=== PATIENT | male | born 1955 | race Caucasian/White ===

== ENCOUNTER 2017-12-28 14:31 | Inpatient (IN) | payer MEDICARE, MEDICAID ==
[~2017-12-28] VITALS: Ht 170.2 cm; Wt 58.5 kg
[~2017-12-28 14:31] MED LIST: BUPR1PAT9 TOP; CARV25TA2 PO; DICL75TA5 PO; DULO60CA64 PO; FURO40TA4 PO; GABA100C PO; GUAI600T45 PO; LACT1CAP26 PO; LOSA50TA21 PO; MAGN400T6 PO; OMEP20CA10 PO; POTA20TA10 PO; PRAZ5CAP PO; PRIM250T32 PO; SYN0.088T PO
[2017-12-28] MEDS ORDERED: albuterol 2.5 MG/3 ML nebule NEB ONE (14:50)
[2017-12-28] MEDS ORDERED: normal saline 1000ML IV soln IV ONE (14:50)
[2017-12-28 15:25] LABS: ABG BASE EXCESS -4.5 mmol/L (-2.0-3.0); ABG HCO3 22.2 mmol/L (22.0-26.0); ABG OXYGEN SATURATION 89.1 % (95-98); ABG PCO2 (T) 48.5 mmHg (35.0-48.0); ABG PH (T) 7.279 (7.350-7.450); ABG PO2 (T) 67.2 mmHg (83-108); FCOHb 4.7 % (0.5-1.5); FLOW 4 L/min; FMetHb 0.3 % (0.3-1.12); FO2Hb 84.6 % (94-100); TOTAL HEMOGLOBIN 10.1 G/dl (14.0-18.0)
[2017-12-28 15:37] LABS: BASOPHILS % (AUTO) 0.2 % (0-1); EOSINOPHILS % (AUTO) 0.1 % (0-6); HEMATOCRIT 30.9 % (42.0-52.0); HEMOGLOBIN 10.3 g/dl (14.0-17.9); LYMPHOCYTES # (AUTO) 0.5 X10'3 (1.1-4.8); LYMPHOCYTES % (AUTO) 6.9 % (21-51); MEAN CORPUSCULAR HEMOGLOBIN 31.5 PG (27.0-31.0); MEAN CORPUSCULAR HGB CONC 33.4 % (33.0-36.5); MEAN CORPUSCULAR VOLUME 94.3 FL (78-98); MEAN PLATELET VOLUME 9.2 FL (7.4-10.4); MONOCYTES # (AUTO) 0.2 X10'3 (0-0.9); NEUTROPHILS # (AUTO) 7.2 X10'3 (1.8-7.7); NEUTROPHILS % (AUTO) 90.8 % (42-75); PLATELET COUNT 129 X10'3 (140-440); RED BLOOD COUNT 3.28 X10'6 (4.70-6.10); RED CELL DISTRIBUTION WIDTH 14.3 % (11.5-14.5); WHITE BLOOD COUNT 7.9 X10'3 (4.5-11.0)
[2017-12-28] MEDS ORDERED: levoFLOXACIN-Levaquin 750MG/D5 150 ML IV ONE (15:40)
[2017-12-28] MEDS ORDERED: CefTRIAXone/D5W-Rocephin 1gm 50 ML IV ONE (15:40)
[2017-12-28 15:48] LABS: ALANINE AMINOTRANSFERASE 38 U/L (12-78); ALBUMIN 2.1 G/DL (3.4-5.0); ALBUMIN/GLOBULIN RATIO 0.6 (1.1-1.5); ALKALINE PHOSPHATASE 48 IU/L (46-116); ANION GAP 9 (8-16); ASPARTATE AMINO TRANSFERASE 52 U/L (10-37); BILIRUBIN,TOTAL 0.4 MG/DL (0.1-1.0); BLOOD UREA NITROGEN 47 MG/DL (7-18); BUN/CREATININE RATIO 15.7 (5.4-32.0); CALCIUM 7.6 MG/DL (8.5-10.1); CHLORIDE 88 MMOL/L (99-107); CREATININE 2.99 MG/DL (0.60-1.10); GLUCOSE 87 MG/DL (70-104); POTASSIUM 3.6 MMOL/L (3.5-5.1); SODIUM 123 MMOL/L (135-145); TOTAL CARBON DIOXIDE 26.1 MMOL/L (24-32); TOTAL PROTEIN 5.9 G/DL (6.4-8.2); eGFR 21 ML/MIN
[2017-12-28 15:55] LABS: INR 1.3 INR; PARTIAL THROMBOPLASTIN TIME 38 SECONDS (22-32); PROTHROMBIN TIME 12.8 SECONDS (9.0-12.0)
[2017-12-28 15:58] LABS: ANISOCYTOSIS 1+; PLATELET ESTIMATE DECREASED; TOTAL CELLS COUNTED 100
[2017-12-28] MEDS ORDERED: vancomycin/NS 1 GM ADD-VANTAGE 250 ML IV ONE (16:10)
[2017-12-28] MEDS ORDERED: CHLO25TA10 PO (16:33)
[2017-12-28] MEDS ORDERED: FERR-29 PO (16:33)
[2017-12-28] MEDS ORDERED: ASPI-1130 PO (16:33)
[2017-12-28] MEDS ORDERED: AMIT100T58 PO (16:33)
[2017-12-28] MEDS ORDERED: magnesium 4gm in 100ml NS 100 ML IV PRN (17:35)
[2017-12-28] MEDS ORDERED: sodium phosphate inj. 15 MMOL in dextrose 5%-water 150 ML IV PRN (17:35)
[2017-12-28] MEDS ORDERED: sodium phosphate inj. 30 MMOL in dextrose 5%-water 250 ML IV PRN (17:35)
[2017-12-28] MEDS ORDERED: Neutra Phos packet PO PRN (17:35)
[2017-12-28] MEDS ORDERED: magnesium 1gm/100ml D5W IVPB 100 ML IV PRN (17:35)
[2017-12-28] MEDS ORDERED: magnesium Cl slow-release 64mg tablet PO PRN (17:35)
[2017-12-28] MEDS ORDERED: magnesium hydroxide 30ml (MOM) UD suspension PO PRN (17:35)
[2017-12-28] MEDS ORDERED: LORazepam 2 mg/ml vial IV PRN (17:35)
[2017-12-28] MEDS ORDERED: acetaminophen 325mg tablet PO PRN (17:35)
[2017-12-28] MEDS ORDERED: haloperidol lactate 5mg/ml inj IM PRN (17:35)
[2017-12-28] MEDS ORDERED: ondansetron/PF 4mg/2ml inj IV PRN (17:35)
[2017-12-28] MEDS ORDERED: potassium Cl 40MEQ/NS 500ml 500 ML IV PRN ×2 (17:35)
[2017-12-28] MEDS ORDERED: haloperidol 5mg tablet PO PRN (17:35)
[2017-12-28] MEDS ORDERED: ipratropium/albuterol 3ml nebule NEB PRN ×2 (17:35→18:40)
[2017-12-28] MEDS ORDERED: K, MAG and/or Phos replacement - Verify level? MC PRN (17:35)
[2017-12-28] MEDS ORDERED: potassium Cl 20 mEq SR tablet PO PRN (17:35)
[2017-12-28] MEDS ORDERED: dextrose 50%-water 50ml dispensing syringe IV PRN (17:35)
[2017-12-28] MEDS ORDERED: thiamine 100mg/ml 2ml inj. IV ONE (17:35)
[2017-12-28 17:50] LABS: ABG BASE EXCESS -2.2 mmol/L (-2.0-3.0); ABG OXYGEN SATURATION 96.6 % (95-98); ABG PCO2 (T) 46.5 mmHg (35.0-48.0); ABG PH (T) 7.329 (7.350-7.450); ABG PO2 (T) 96.2 mmHg (83-108); FO2Hb 94.7 % (94-100); MINUTE VOLUME 7 L/min; PATIENT TEMPERATURE 36.6; RESPIRATORY RATE 16 b/min; RESPIRATORY RATE (OBSERVED) 19 b/min; TIDAL VOLUME 426 mL; TOTAL HEMOGLOBIN 10.8 G/dl (14.0-18.0)
[2017-12-28 18:15] LABS: AMYLASE 15 U/L (25-115); LIPASE < 50 U/L (73-393)
[2017-12-28 18:33] LABS: HEMOGLOBIN A1C 5.1 % (4.5-6.2)
[2017-12-28] MEDS ORDERED: vancomycin/NS 1 GM ADD-VANTAGE 250 ML IV SCH (20:00)
[2017-12-28] MEDS: duloxetine 30mg CAPSULE.DR PO SCH (20:21)
[2017-12-28] MEDS: gabapentin 300mg capsule PO SCH (20:21)
[2017-12-28] MEDS: carVEDilol 3.125mg tablet PO SCH (20:21)
[2017-12-28] MEDS: methylPREDNISolone sod succ 125mg/2ml vial IV SCH (20:24)
[2017-12-28] MEDS: pantoprazole 40 MG vial IV SCH (20:27)
[2017-12-28] MEDS: amitryptiline 50mg tablet PO SCH (21:00)
[2017-12-28] MEDS: prazosin 5mg capsule PO SCH (21:00)
[2017-12-29] MEDS: methylPREDNISolone sod succ 125mg/2ml vial IV SCH ×4 (01:41→19:52)
[2017-12-29 04:01] LABS: ABG BASE EXCESS -1.2 mmol/L (-2.0-3.0); ABG HCO3 24.7 mmol/L (22.0-26.0); ABG OXYGEN SATURATION 92.2 % (95-98); ABG PCO2 (T) 45.5 mmHg (35.0-48.0); ABG PO2 (T) 64.4 mmHg (83-108); ALLEN'S TEST Positive; FCOHb 0.4 % (0.5-1.5); FLOW 3 L/min; FMetHb 0.3 % (0.3-1.12); FO2Hb 91.6 % (94-100); PATIENT TEMPERATURE 36.7
[2017-12-29] MEDS ORDERED: levoFLOXACIN-Levaquin 500mg/D5 100 ML IV SCH (08:00)
[2017-12-29 08:05] LABS: ALANINE AMINOTRANSFERASE 33 U/L (12-78); ALBUMIN 2.1 G/DL (3.4-5.0); ALBUMIN/GLOBULIN RATIO 0.5 (1.1-1.5); ALKALINE PHOSPHATASE 47 IU/L (46-116); ANION GAP 11 (8-16); ASPARTATE AMINO TRANSFERASE 33 U/L (10-37); BILIRUBIN,TOTAL 0.2 MG/DL (0.1-1.0); BLOOD UREA NITROGEN 43 MG/DL (7-18); BUN/CREATININE RATIO 23.5 (5.4-32.0); CALCIUM 7.9 MG/DL (8.5-10.1); CHLORIDE 93 MMOL/L (99-107); CREATININE 1.83 MG/DL (0.60-1.10); GLUCOSE 206 MG/DL (70-104); PHOSPHORUS 3.5 MG/DL (2.3-4.5); POTASSIUM 3.2 MMOL/L (3.5-5.1); SODIUM 129 MMOL/L (135-145); TOTAL CARBON DIOXIDE 24.6 MMOL/L (24-32); eGFR 38 ML/MIN
[2017-12-29 08:25] LABS: BASOPHILS % (AUTO) 0.3 % (0-1); EOSINOPHILS % (AUTO) 0.4 % (0-6); HEMATOCRIT 30.6 % (42.0-52.0); HEMOGLOBIN 10.3 g/dl (14.0-17.9); LYMPHOCYTES # (AUTO) 0.3 X10'3 (1.1-4.8); MEAN CORPUSCULAR HEMOGLOBIN 31.7 PG (27.0-31.0); MEAN CORPUSCULAR HGB CONC 33.6 % (33.0-36.5); MEAN CORPUSCULAR VOLUME 94.4 FL (78-98); MEAN PLATELET VOLUME 9.5 FL (7.4-10.4); MONOCYTES # (AUTO) 0.1 X10'3 (0-0.9); NEUTROPHILS # (AUTO) 7.9 X10'3 (1.8-7.7); NEUTROPHILS % (AUTO) 94.3 % (42-75); PLATELET COUNT 144 X10'3 (140-440); RED BLOOD COUNT 3.24 X10'6 (4.70-6.10); RED CELL DISTRIBUTION WIDTH 14.4 % (11.5-14.5); WHITE BLOOD COUNT 8.4 X10'3 (4.5-11.0)
[2017-12-29] MEDS: CefTRIAXone/D5W-Rocephin 1gm 50 ML IV SCH (08:39)
[2017-12-29 08:41] LABS: PLATELET ESTIMATE NORMAL; TOTAL CELLS COUNTED 100
[2017-12-29] MEDS: pantoprazole 40 MG vial IV SCH (08:41)
[2017-12-29] MEDS: potassium Cl 20 mEq SR tablet PO PRN (08:42)
[2017-12-29] MEDS: aspirin 81mg tablet.DR PO SCH (08:42)
[2017-12-29] MEDS: gabapentin 300mg capsule PO SCH ×2 (08:42→19:52)
[2017-12-29] MEDS: carVEDilol 3.125mg tablet PO SCH ×2 (08:42→19:52)
[2017-12-29] MEDS: ferrous sulfate 325mg tablet PO SCH (08:42)
[2017-12-29] MEDS: multivitamins, therapeutics tablet PO SCH (08:42)
[2017-12-29] MEDS: folic acid 1mg tablet PO SCH (08:42)
[2017-12-29] MEDS: thiamine 100mg tablet PO SCH (08:42)
[2017-12-29] MEDS: duloxetine 30mg CAPSULE.DR PO SCH ×2 (08:42→19:52)
[2017-12-29] MEDS: primidone 250mg tablet PO SCH (08:43)
[2017-12-29 14:00] VITALS: BP 115/72
[2017-12-29 14:10] VITALS: BP 131/65
[2017-12-29] MEDS: morphine 2 MG/ML inj. syringe IV PRN (15:05)
[2017-12-29] MEDS: vancomycin/NS 1 GM ADD-VANTAGE 250 ML IV SCH (17:13)
[2017-12-29 18:00] VITALS: BP 123/74
[2017-12-29] MEDS: amitryptiline 50mg tablet PO SCH (19:52)
[2017-12-29] MEDS: pantoprazole 40mg Tablet.DR PO SCH (19:52)
[2017-12-29] MEDS: lactobacillus rhamnosus 10,000 MMU CELLS/CAPSULE PO SCH (19:52)
[2017-12-29] MEDS: prazosin 5mg capsule PO SCH (21:00)
[2017-12-29 22:00] VITALS: BP 127/80
[2017-12-30] MEDS: methylPREDNISolone sod succ 125mg/2ml vial IV SCH ×4 (01:45→20:51)
[2017-12-30 02:00] VITALS: BP 162/98
[2017-12-30 05:06] LABS: BASOPHILS % (AUTO) 0 % (0-1); EOSINOPHILS % (AUTO) 0 % (0-6); HEMATOCRIT 30.6 % (42.0-52.0); HEMOGLOBIN 10.1 g/dl (14.0-17.9); LYMPHOCYTES # (AUTO) 0.3 X10'3 (1.1-4.8); LYMPHOCYTES % (AUTO) 3.8 % (21-51); MEAN CORPUSCULAR HEMOGLOBIN 31.1 PG (27.0-31.0); MEAN CORPUSCULAR HGB CONC 32.8 % (33.0-36.5); MEAN CORPUSCULAR VOLUME 94.8 FL (78-98); MEAN PLATELET VOLUME 9.2 FL (7.4-10.4); MONOCYTES # (AUTO) 0.2 X10'3 (0-0.9); MONOCYTES % (AUTO) 1.9 % (2-12); NEUTROPHILS # (AUTO) 7.7 X10'3 (1.8-7.7); NEUTROPHILS % (AUTO) 94.3 % (42-75); PLATELET COUNT 155 X10'3 (140-440); RED BLOOD COUNT 3.23 X10'6 (4.70-6.10); RED CELL DISTRIBUTION WIDTH 14.8 % (11.5-14.5); WHITE BLOOD COUNT 8.2 X10'3 (4.5-11.0)
[2017-12-30 05:30] LABS: ALANINE AMINOTRANSFERASE 28 U/L (12-78); ALBUMIN/GLOBULIN RATIO 0.5 (1.1-1.5); ALKALINE PHOSPHATASE 53 IU/L (46-116); ANION GAP 7 (8-16); ASPARTATE AMINO TRANSFERASE 20 U/L (10-37); BILIRUBIN,TOTAL 0.2 MG/DL (0.1-1.0); BLOOD UREA NITROGEN 39 MG/DL (7-18); BUN/CREATININE RATIO 28.1 (5.4-32.0); CALCIUM 8.3 MG/DL (8.5-10.1); CHLORIDE 94 MMOL/L (99-107); CREATININE 1.39 MG/DL (0.60-1.10); GLUCOSE 134 MG/DL (70-104); MAGNESIUM 2.2 MG/DL (1.5-2.4); PHOSPHORUS 2.4 MG/DL (2.3-4.5); POTASSIUM 3.2 MMOL/L (3.5-5.1); SODIUM 128 MMOL/L (135-145); TOTAL CARBON DIOXIDE 27.2 MMOL/L (24-32); TOTAL PROTEIN 6.2 G/DL (6.4-8.2); eGFR 52 ML/MIN
[2017-12-30 06:00] VITALS: BP 147/93
[2017-12-30 06:33] LABS: TOTAL CELLS COUNTED 100
[2017-12-30 06:34] LABS: PLATELET ESTIMATE NORMAL
[2017-12-30] MEDS: CefTRIAXone/D5W-Rocephin 1gm 50 ML IV SCH (07:25)
[2017-12-30] MEDS: potassium Cl 20 mEq SR tablet PO PRN ×3 (07:34→19:39)
[2017-12-30] MEDS: duloxetine 30mg CAPSULE.DR PO SCH ×2 (07:34→20:51)
[2017-12-30] MEDS: multivitamins, therapeutics tablet PO SCH (07:34)
[2017-12-30] MEDS: carVEDilol 3.125mg tablet PO SCH ×2 (07:35→20:51)
[2017-12-30] MEDS: thiamine 100mg tablet PO SCH (07:35)
[2017-12-30] MEDS: aspirin 81mg tablet.DR PO SCH (07:35)
[2017-12-30] MEDS: folic acid 1mg tablet PO SCH (07:35)
[2017-12-30] MEDS: pantoprazole 40mg Tablet.DR PO SCH ×2 (07:35→20:51)
[2017-12-30] MEDS: lactobacillus rhamnosus 10,000 MMU CELLS/CAPSULE PO SCH ×2 (07:35→20:51)
[2017-12-30] MEDS: gabapentin 300mg capsule PO SCH ×2 (07:35→20:51)
[2017-12-30] MEDS: ferrous sulfate 325mg tablet PO SCH (07:35)
[2017-12-30] MEDS: primidone 250mg tablet PO SCH (08:13)
[2017-12-30 11:00] VITALS: BP 121/88
[2017-12-30] MEDS: levoFLOXACIN 250mg tablet PO SCH (11:22)
[2017-12-30 15:00] VITALS: BP 171/101
[2017-12-30] MEDS: vancomycin/NS 1 GM ADD-VANTAGE 250 ML IV SCH (17:00)
[2017-12-30] MEDS ORDERED: LORazepam 2 mg/ml vial IV PRN (17:35)
[2017-12-30] MEDS ORDERED: LORazepam 1 MG tablet PO PRN (17:35)
[2017-12-30 18:00] VITALS: BP 162/97
[2017-12-30] MEDS: morphine 2 MG/ML inj. syringe IV PRN (19:39)
[2017-12-30] MEDS: amitryptiline 50mg tablet PO SCH (20:51)
[2017-12-30] MEDS: prazosin 5mg capsule PO SCH (20:51)
[2017-12-30 22:00] VITALS: BP 162/96
[2017-12-31 02:00] VITALS: BP 156/104
[2017-12-31] MEDS: methylPREDNISolone sod succ 125mg/2ml vial IV SCH ×2 (02:47→08:35)
[2017-12-31 04:52] LABS: BASOPHILS % (AUTO) 0 % (0-1); EOSINOPHILS % (AUTO) 0 % (0-6); HEMATOCRIT 33.6 % (42.0-52.0); HEMOGLOBIN 11.2 g/dl (14.0-17.9); LYMPHOCYTES # (AUTO) 0.4 X10'3 (1.1-4.8); MEAN CORPUSCULAR HEMOGLOBIN 31.4 PG (27.0-31.0); MEAN CORPUSCULAR HGB CONC 33.2 % (33.0-36.5); MEAN CORPUSCULAR VOLUME 94.8 FL (78-98); MONOCYTES # (AUTO) 0.1 X10'3 (0-0.9); MONOCYTES % (AUTO) 1.8 % (2-12); NEUTROPHILS # (AUTO) 5.9 X10'3 (1.8-7.7); NEUTROPHILS % (AUTO) 92.2 % (42-75); PLATELET COUNT 191 X10'3 (140-440); RED BLOOD COUNT 3.55 X10'6 (4.70-6.10); RED CELL DISTRIBUTION WIDTH 14.9 % (11.5-14.5); WHITE BLOOD COUNT 6.4 X10'3 (4.5-11.0)
[2017-12-31 05:22] LABS: ALANINE AMINOTRANSFERASE 27 U/L (12-78); ALBUMIN 2.1 G/DL (3.4-5.0); ALBUMIN/GLOBULIN RATIO 0.5 (1.1-1.5); ALKALINE PHOSPHATASE 53 IU/L (46-116); ANION GAP 6 (8-16); ASPARTATE AMINO TRANSFERASE 17 U/L (10-37); BILIRUBIN,TOTAL 0.2 MG/DL (0.1-1.0); BLOOD UREA NITROGEN 34 MG/DL (7-18); BUN/CREATININE RATIO 31.8 (5.4-32.0); CALCIUM 8.4 MG/DL (8.5-10.1); CHLORIDE 96 MMOL/L (99-107); CREATININE 1.07 MG/DL (0.60-1.10); GLUCOSE 141 MG/DL (70-104); MAGNESIUM 1.7 MG/DL (1.5-2.4); PHOSPHORUS 2.3 MG/DL (2.3-4.5); POTASSIUM 3.6 MMOL/L (3.5-5.1); SODIUM 133 MMOL/L (135-145); TOTAL CARBON DIOXIDE 30.9 MMOL/L (24-32); TOTAL PROTEIN 6.4 G/DL (6.4-8.2); eGFR 70 ML/MIN
[2017-12-31 07:00] VITALS: BP 184/100
[2017-12-31] MEDS: primidone 250mg tablet PO SCH (08:30)
[2017-12-31] MEDS ORDERED: prednisone 10mg tablet PO SCH (08:30)
[2017-12-31] MEDS: gabapentin 300mg capsule PO SCH (08:31)
[2017-12-31] MEDS: multivitamins, therapeutics tablet PO SCH (08:31)
[2017-12-31] MEDS: carVEDilol 3.125mg tablet PO SCH (08:33)
[2017-12-31] MEDS: lactobacillus rhamnosus 10,000 MMU CELLS/CAPSULE PO SCH (08:33)
[2017-12-31] MEDS: ferrous sulfate 325mg tablet PO SCH (08:33)
[2017-12-31] MEDS: pantoprazole 40mg Tablet.DR PO SCH (08:33)
[2017-12-31] MEDS: aspirin 81mg tablet.DR PO SCH (08:34)
[2017-12-31] MEDS: CefTRIAXone/D5W-Rocephin 1gm 50 ML IV SCH (08:35)
[2017-12-31] MEDS: duloxetine 30mg CAPSULE.DR PO SCH (08:35)
[2017-12-31] MEDS: folic acid 1mg tablet PO SCH (08:36)
[2017-12-31] MEDS: thiamine 100mg tablet PO SCH (08:36)
[2017-12-31] MEDS ORDERED: PRED10TA PO (12:25)
[2017-12-31] MEDS: levoFLOXACIN 250mg tablet PO SCH (12:47)
[2017-12-31] MEDS ORDERED: MESSAGE TO NURSING IV ONE (16:30)
[2017-12-31] MEDS ORDERED: VANCOMYCIN LEVEL IV ONE (16:30)
[2018-01-01] MEDS ORDERED: LORazepam 1 MG tablet PO PRN (17:35)
[2018-01-01] MEDS ORDERED: LORazepam 2 mg/ml vial IV PRN (17:35)
== END 2017-12-31 18:38 | disposition home or self-care (01) | DRG 871 ==
LOC: ER 14:31 → ED HOLD 17:33 → S STAY 12-29 13:59 → PCU 3S 12-29 14:10
PROVIDERS: ADMIT Physician Assistant
PROC: 5A09357 Assistance with Respiratory Ventilation, Less than 24 Consecutive Hours, Continuous Positive Airway Pressure (ICD-10-PCS; principal; 2017-12-28)
DX: A41.9 Sepsis, unspecified organism (principal); J18.1 Lobar pneumonia, unspecified organism; J96.01 Acute respiratory failure with hypoxia; J96.02 Acute respiratory failure with hypercapnia; E87.1 Hypo-osmolality and hyponatremia; J44.0 Chronic obstructive pulmonary disease with (acute) lower respiratory infection; N17.9 Acute kidney failure, unspecified; K72.90 Hepatic failure, unspecified without coma; E86.0 Dehydration; I95.9 Hypotension, unspecified; G89.4 Chronic pain syndrome; E83.42 Hypomagnesemia; F10.20 Alcohol dependence, uncomplicated; E11.9 Type 2 diabetes mellitus without complications; M54.9 Dorsalgia, unspecified; R49.0 Dysphonia; I10 Essential (primary) hypertension; F17.200 Nicotine dependence, unspecified, uncomplicated; W18.39XA Other fall on same level, initial encounter; Z79.899 Other long term (current) drug therapy; Z79.82 Long term (current) use of aspirin; Z85.819 Personal history of malignant neoplasm of unspecified site of lip, oral cavity, and pharynx; Z82.5 Family history of asthma and other chronic lower respiratory diseases; Z83.3 Family history of diabetes mellitus; Y93.89 Activity, other specified; Y92.89 Other specified places as the place of occurrence of the external cause; Y99.8 Other external cause status
CPT/HCPCS: 36415; 36600; 70450; 71045; 80053; 82150; 82803; 82948; 83036; 83605; 83690; 83735; 83880; 84100; 84145; 85018; 85025; 85610; 85730; 86885; 86900; 86901; 87040; 87070; 93005; 94640; 94660; 94760; 96365; 96367; 97116; 97162; 97530; 99291; C9113; G0378; J0696; J1956; J2060; J2270; J2930; J3370; J3411; J3475

== ENCOUNTER 2018-02-04 13:40 | Inpatient (IN) | payer MEDICARE, MEDICAID ==
[~2018-02-04] VITALS: Ht 170.2 cm; Wt 50.0 kg
[~2018-02-04 13:40] MED LIST changes: +0.9 % SODIUM CHLORIDE 10 ML VIAL ONE; +AMIT100T58 PO; +ASPI-1130 PO; -BUPR1PAT9 TOP; +CHLO25TA10 PO; +FERR-29 PO; -GUAI600T45 PO; -LACT1CAP26 PO; -LOSA50TA21 PO; +LOSA50TA64 PO; -MAGN400T6 PO; +PRED10TA PO; -SYN0.088T PO; +etomidate 2mg/ml inj. ONE
[2018-02-04] MEDS ORDERED: furosemide 40mg/4ml inj IV ONE (13:55)
[2018-02-04] MEDS ORDERED: ipratropium/albuterol 3ml nebule NEB ONE (14:15)
--- NOTE | 2018-02-04 14:15 | NUR ---
Reported pts bp 102/[address] Bonilla, VO to hold IV Lasix for now.
[2018-02-04 14:26] LABS: BASOPHILS % (AUTO) 0.1 % (0-1); EOSINOPHILS % (AUTO) 0 % (0-6); HEMATOCRIT 34.1 % (42.0-52.0); HEMOGLOBIN 11.2 g/dl (14.0-17.9); LYMPHOCYTES # (AUTO) 0.5 X10'3 (1.1-4.8); LYMPHOCYTES % (AUTO) 4.1 % (21-51); MEAN CORPUSCULAR HEMOGLOBIN 30.1 PG (27.0-31.0); MEAN CORPUSCULAR HGB CONC 32.8 % (33.0-36.5); MEAN CORPUSCULAR VOLUME 91.8 FL (78-98); MONOCYTES # (AUTO) 0.3 X10'3 (0-0.9); NEUTROPHILS % (AUTO) 93.8 % (42-75); PLATELET COUNT 241 X10'3 (140-440); RED BLOOD COUNT 3.71 X10'6 (4.70-6.10); RED CELL DISTRIBUTION WIDTH 15.3 % (11.5-14.5); WHITE BLOOD COUNT 12.8 X10'3 (4.5-11.0)
[2018-02-04 14:41] LABS: ABG BASE EXCESS 1.6 mmol/L (-2.0-3.0); ABG HCO3 26.8 mmol/L (22.0-26.0); ABG OXYGEN SATURATION 87.7 % (95-98); ABG PCO2 (T) 44.3 mmHg (35.0-48.0); ABG PH (T) 7.399 (7.350-7.450); ABG PO2 (T) 55.3 mmHg (83-108); ALLEN'S TEST Positive; FCOHb 0.9 % (0.5-1.5); FMetHb 0.1 % (0.3-1.12); FO2Hb 86.8 % (94-100)
[2018-02-04 14:41] LABS: INR 1.1 INR; PARTIAL THROMBOPLASTIN TIME 31 SECONDS (22-32); PROTHROMBIN TIME 10.8 SECONDS (9.0-12.0)
[2018-02-04 14:48] LABS: ALANINE AMINOTRANSFERASE 50 U/L (12-78); ALBUMIN 2.7 G/DL (3.4-5.0); ALBUMIN/GLOBULIN RATIO 0.6 (1.1-1.5); ASPARTATE AMINO TRANSFERASE 43 U/L (10-37); BILIRUBIN,TOTAL 0.4 MG/DL (0.1-1.0); BLOOD UREA NITROGEN 17 MG/DL (7-18); BUN/CREATININE RATIO 15.5 (5.4-32.0); CALCIUM 8.1 MG/DL (8.5-10.1); CHLORIDE 92 MMOL/L (99-107); GLUCOSE 126 MG/DL (70-104); SODIUM 132 MMOL/L (135-145); TOTAL PROTEIN 7.2 G/DL (6.4-8.2); eGFR 68 ML/MIN
[2018-02-04 14:53] LABS: POTASSIUM 2.9 MMOL/L (3.5-5.1)
[2018-02-04 14:55] LABS: PLATELET ESTIMATE NORMAL; TOTAL CELLS COUNTED 100
[2018-02-04] MEDS ORDERED: levoFLOXACIN-Levaquin 750MG/D5 150 ML IV ONE (15:00)
[2018-02-04] MEDS ORDERED: potassium Cl 10 mEq/100mL bag IV ONE (15:05)
[2018-02-04 15:10] LABS: ALKALINE PHOSPHATASE 127 IU/L (46-116); ANION GAP 14 (8-16); TOTAL CARBON DIOXIDE 25.3 MMOL/L (24-32)
[2018-02-04] MEDS ORDERED: haloperidol lactate 5mg/ml inj IM PRN (15:30)
[2018-02-04] MEDS ORDERED: magnesium hydroxide 30ml (MOM) UD suspension PO PRN (15:30)
[2018-02-04] MEDS ORDERED: ondansetron/PF 4mg/2ml inj IV PRN (15:30)
[2018-02-04] MEDS ORDERED: LORazepam 2 mg/ml vial IV ONE (15:30)
[2018-02-04] MEDS ORDERED: dextrose 50%-water 50ml dispensing syringe IV PRN (15:30)
[2018-02-04] MEDS ORDERED: albuterol 2.5 MG/3 ML nebule NEB PRN (15:30)
[2018-02-04] MEDS ORDERED: magnesium 4gm in 100ml NS 100 ML IV PRN (15:30)
[2018-02-04] MEDS ORDERED: mag hydrox/Alum hydrox/simeth 30ml oral suspension PO PRN (15:30)
[2018-02-04] MEDS ORDERED: potassium Cl 20 mEq SR tablet PO PRN (15:30)
[2018-02-04] MEDS ORDERED: acetaminophen 325mg tablet PO PRN ×2 (15:30)
[2018-02-04] MEDS ORDERED: potassium Cl 40MEQ/NS 500ml 500 ML IV PRN (15:30)
[2018-02-04] MEDS ORDERED: HYDROcodone/acetaminophen 5mg/325mg tablet PO PRN (15:30)
[2018-02-04] MEDS ORDERED: haloperidol 5mg tablet PO PRN (15:30)
[2018-02-04] MEDS ORDERED: LORazepam 1 MG tablet PO PRN (15:30)
[2018-02-04] MEDS ORDERED: thiamine 100mg/ml 2ml inj. IV ONE ×2 (15:30→21:10)
[2018-02-04] MEDS ORDERED: methylPREDNISolone sod succ 125mg/2ml vial IV ONE (15:30)
[2018-02-04] MEDS ORDERED: LORazepam 2 mg/ml vial IV PRN (15:30)
[2018-02-04] MEDS ORDERED: magnesium Cl slow-release 64mg tablet PO PRN (15:30)
[2018-02-04] MEDS ORDERED: cefepime 1GM/NS ADD-VANTAGE 100 ML IV SCH (15:30)
[2018-02-04] MEDS ORDERED: potassium 10mEq/100ml NS w/LIDOcaine (10mg/bag) IV ONE (15:45)
[2018-02-04] MEDS: normal saline 1000ml 1,000 ML IV SCH (16:42)
--- NOTE | 2018-02-04 18:50 | NUR ---
Patient in room 3013B I have received bedside report from Carline JAMES and had the opportunity to ask questions and assume patient care.
--- NOTE | 2018-02-04 19:10 | NUR ---
At 1906 I was alerted that pt was desating to the 70s. A non rebreather was applied. Pt was tachypneic and severely moist sounding respirations. His O2 Sat barely responded to 15L and non rebreather. A rapid response was called. Dr. Tapia at bedside. Pt failed to respond to initial interventions. At 192 a code blue was called for respiratory failure. Pt was intubated at bedside by Dr. Basilio and transferred to ICU. Bedside report was given to Idalia JAMES.
[2018-02-04] MEDS ORDERED: propofol 1000mg/100ml bottle 100 ML IV ONE (19:42)
[2018-02-04] MEDS ORDERED: ipratropium/albuterol 3ml nebule NEB PRN (19:55)
[2018-02-04 20:00] VITALS: BP 102/68
[2018-02-04] MEDS ORDERED: non-formulary drug (Duloxetine HCl 1 CAP) PO SCH (20:00)
[2018-02-04] MEDS: duloxetine 30mg CAPSULE.DR PO SCH (20:00)
[2018-02-04] MEDS: gabapentin 300mg capsule PO SCH (20:00)
[2018-02-04] MEDS: cefepime 1GM/NS ADD-VANTAGE 100 ML IV SCH (20:00)
--- NOTE | 2018-02-04 20:00 | NUR ---
Patient in room ICU 2045. I have received report from Shelli JAMES and had the opportunity to ask questions and assume patient care.
[2018-02-04] MEDS: FENTANYL-0.9 % NACL/PF 100 ML IV PRN (20:29)
[2018-02-04] MEDS: midazolam 100mg in NS 100ml 100 ML IV PRN (20:29)
[2018-02-04 20:30] LABS: ABG BASE EXCESS 1.8 mmol/L (-2.0-3.0); ABG HCO3 28.9 mmol/L (22.0-26.0); ABG OXYGEN SATURATION 97.2 % (95-98); ABG PH (T) 7.305 (7.350-7.450); ABG PO2 (T) 111.1 mmHg (83-108); ALLEN'S TEST Positive; FCOHb 0.6 % (0.5-1.5); FMetHb 0.2 % (0.3-1.12); FO2Hb 96.4 % (94-100); MINUTE VOLUME 8 L/min; PATIENT TEMPERATURE 38.1; PEEP 5 cm H2O; RESPIRATORY RATE 14 b/min; RESPIRATORY RATE (OBSERVED) 19 b/min; TIDAL VOLUME 450 mL
[2018-02-04] MEDS: amitryptiline 50mg tablet PO SCH (20:50)
[2018-02-04 21:00] VITALS: BP 120/77
[2018-02-04] MEDS ORDERED: temazepam 15mg capsule PO PRN (21:00)
[2018-02-04] MEDS ORDERED: prazosin 5mg capsule PO SCH (21:00)
[2018-02-04] MEDS ORDERED: AMITRIPTYLINE HCL PO SCH (21:00)
--- NOTE | 2018-02-04 21:00 | NUR ---
Critical WBC called to Stephen Sanford NP. Will continue to monitor patient.
[2018-02-04 21:07] LABS: BASOPHILS % (AUTO) 0 % (0-1); EOSINOPHILS % (AUTO) 0 % (0-6); HEMATOCRIT 36.8 % (42.0-52.0); HEMOGLOBIN 11.9 g/dl (14.0-17.9); LYMPHOCYTES # (AUTO) 1.6 X10'3 (1.1-4.8); LYMPHOCYTES % (AUTO) 5.5 % (21-51); MEAN CORPUSCULAR HEMOGLOBIN 30.4 PG (27.0-31.0); MEAN CORPUSCULAR HGB CONC 32.4 % (33.0-36.5); MEAN CORPUSCULAR VOLUME 93.9 FL (78-98); MEAN PLATELET VOLUME 9.1 FL (7.4-10.4); MONOCYTES # (AUTO) 0.7 X10'3 (0-0.9); MONOCYTES % (AUTO) 2.5 % (2-12); NEUTROPHILS # (AUTO) 26.4 X10'3 (1.8-7.7); PLATELET COUNT 313 X10'3 (140-440); RED BLOOD COUNT 3.91 X10'6 (4.70-6.10); RED CELL DISTRIBUTION WIDTH 15.5 % (11.5-14.5)
[2018-02-04 21:11] LABS: WHITE BLOOD COUNT 28.7 X10'3 (4.5-11.0)
[2018-02-04 21:28] LABS: ALANINE AMINOTRANSFERASE 53 U/L (12-78); ALBUMIN 2.9 G/DL (3.4-5.0); ALBUMIN/GLOBULIN RATIO 0.6 (1.1-1.5); ALKALINE PHOSPHATASE 126 IU/L (46-116); ANION GAP 14 (8-16); ASPARTATE AMINO TRANSFERASE 48 U/L (10-37); BILIRUBIN,TOTAL 0.5 MG/DL (0.1-1.0); BLOOD UREA NITROGEN 14 MG/DL (7-18); BUN/CREATININE RATIO 16.1 (5.4-32.0); CALCIUM 8.5 MG/DL (8.5-10.1); CHLORIDE 92 MMOL/L (99-107); CREATININE 0.87 MG/DL (0.60-1.10); GLUCOSE 124 MG/DL (70-104); MAGNESIUM 1.4 MG/DL (1.5-2.4); POTASSIUM 3.8 MMOL/L (3.5-5.1); SODIUM 131 MMOL/L (135-145); TOTAL CARBON DIOXIDE 25.1 MMOL/L (24-32); TOTAL PROTEIN 7.9 G/DL (6.4-8.2); eGFR 89 ML/MIN
[2018-02-04] MEDS ORDERED: cefepime 1GM/NS ADD-VANTAGE 100 ML IV ONE (21:50)
[2018-02-04 22:00] VITALS: BP 136/85
[2018-02-04 23:00] VITALS: BP 133/81
[2018-02-05] VITALS (24 sets, daily range): BP systolic 111–146; BP diastolic 67–91
[2018-02-05 03:01] LABS: ABG HCO3 28.9 mmol/L (22.0-26.0); ABG OXYGEN SATURATION 97.3 % (95-98); ABG PCO2 (T) 35.8 mmHg (35.0-48.0); ABG PH (T) 7.525 (7.350-7.450); ABG PO2 (T) 94.1 mmHg (83-108); ALLEN'S TEST Positive; FCOHb 0.3 % (0.5-1.5); FMetHb 0.1 % (0.3-1.12); FO2Hb 96.9 % (94-100); MINUTE VOLUME 9 L/min; PATIENT TEMPERATURE 37.2; PEEP 5 cm H2O; RESPIRATORY RATE 18 b/min; RESPIRATORY RATE (OBSERVED) 18 b/min; TIDAL VOLUME 450 mL; TOTAL HEMOGLOBIN 11.7 G/dl (14.0-18.0)
[2018-02-05] MEDS: normal saline 1000ml 1,000 ML IV SCH ×2 (03:08→12:50)
[2018-02-05 05:46] LABS: BASOPHILS % (AUTO) 0 % (0-1); EOSINOPHILS % (AUTO) 0 % (0-6); HEMATOCRIT 28.6 % (42.0-52.0); HEMOGLOBIN 9.4 g/dl (14.0-17.9); LYMPHOCYTES # (AUTO) 0.6 X10'3 (1.1-4.8); LYMPHOCYTES % (AUTO) 5.3 % (21-51); MEAN CORPUSCULAR HEMOGLOBIN 30.3 PG (27.0-31.0); MEAN CORPUSCULAR HGB CONC 32.8 % (33.0-36.5); MEAN CORPUSCULAR VOLUME 92.4 FL (78-98); MEAN PLATELET VOLUME 8.6 FL (7.4-10.4); MONOCYTES # (AUTO) 0.4 X10'3 (0-0.9); MONOCYTES % (AUTO) 3.6 % (2-12); NEUTROPHILS % (AUTO) 91.1 % (42-75); PLATELET COUNT 219 X10'3 (140-440); WHITE BLOOD COUNT 12.1 X10'3 (4.5-11.0)
[2018-02-05 06:02] LABS: ALBUMIN 2.2 G/DL (3.4-5.0); ANION GAP 11 (8-16); BLOOD UREA NITROGEN 16 MG/DL (7-18); BUN/CREATININE RATIO 20.5 (5.4-32.0); CALCIUM 7.6 MG/DL (8.5-10.1); CHLORIDE 99 MMOL/L (99-107); CREATININE 0.78 MG/DL (0.60-1.10); GLUCOSE 109 MG/DL (70-104); MAGNESIUM 1.2 MG/DL (1.5-2.4); SODIUM 135 MMOL/L (135-145); TOTAL CARBON DIOXIDE 24.8 MMOL/L (24-32); eGFR > 90 ML/MIN
[2018-02-05 06:17] LABS: POTASSIUM 2.4 MMOL/L (3.5-5.1)
--- NOTE | 2018-02-05 06:30 | NUR ---
Patient in room ICU 2045. I have received report from Idalia Marcum RN and had the opportunity to ask questions and assume patient care.
--- NOTE | 2018-02-05 06:31 | NUR ---
Problems reprioritized. Patient report given, questions answered & plan of care reviewed with Adrienne JAMES.
[2018-02-05] MEDS ORDERED: methylPREDNISolone sod succ 125mg/2ml vial IV ONE (07:00)
[2018-02-05] MEDS: K and/or MAG REPLACEMENT MC SCH (07:08)
[2018-02-05] MEDS: duloxetine 30mg CAPSULE.DR PO SCH ×2 (07:10→21:29)
[2018-02-05] MEDS ORDERED: pantoprazole 40mg Tablet.DR PO SCH (07:30)
[2018-02-05] MEDS: potassium Cl 20 mEq SR tablet PO PRN ×2 (07:38→15:15)
[2018-02-05] MEDS: potassium Cl 20 mEq SR tablet PO SCH (08:00)
[2018-02-05] MEDS ORDERED: aspirin 81mg tablet.DR PO SCH (08:00)
[2018-02-05] MEDS ORDERED: non-formulary drug (Carvedilol 1 TAB) PO SCH (08:00)
[2018-02-05] MEDS ORDERED: carVEDilol 12.5mg tablet PO SCH (08:00)
[2018-02-05] MEDS ORDERED: non-formulary drug (Omeprazole 1 CAP) PO SCH (08:00)
[2018-02-05] MEDS ORDERED: ferrous sulfate 325mg tablet PO SCH (08:00)
[2018-02-05] MEDS: methylPREDNISolone sod succ/PF 40mg inj. IV SCH ×3 (08:00→21:29)
[2018-02-05] MEDS ORDERED: losartan 50mg tablet PO SCH (08:00)
[2018-02-05] MEDS: levoFLOXACIN-Levaquin 500mg/D5 100 ML IV SCH (08:35)
[2018-02-05] MEDS: potassium Cl 40MEQ/NS 500ml 500 ML IV PRN ×2 (08:44→12:51)
[2018-02-05] MEDS: enoxaparin 40mg/0.4ml syringe SUBCUT SCH (09:20)
[2018-02-05] MEDS: chlorthalidone 25mg tablet PO SCH (09:20)
[2018-02-05] MEDS: thiamine 100mg tablet PO SCH (09:20)
[2018-02-05] MEDS: primidone 250mg tablet PO SCH (09:21)
[2018-02-05] MEDS: folic acid 1mg tablet PO SCH (09:21)
[2018-02-05] MEDS: gabapentin 300mg capsule PO SCH ×2 (09:21→21:16)
[2018-02-05] MEDS: furosemide 40mg tablet PO SCH (09:21)
[2018-02-05] MEDS: cefepime 1GM/NS ADD-VANTAGE 100 ML IV SCH ×2 (09:47→21:32)
[2018-02-05] MEDS ORDERED: sodium phosphate inj. 15 MMOL in dextrose 5%-water 150 ML IV PRN (10:55)
[2018-02-05] MEDS ORDERED: Neutra Phos packet PO PRN (10:55)
[2018-02-05] MEDS ORDERED: sodium phosphate inj. 30 MMOL in dextrose 5%-water 250 ML IV PRN (10:55)
[2018-02-05] MEDS ORDERED: LORazepam 2 mg/ml vial IV PRN (11:05)
[2018-02-05] MEDS ORDERED: LORazepam 1 MG tablet PO PRN (11:05)
--- NOTE | 2018-02-05 11:19 | NUR ---
report given to Mark JAMES. Addendum: 02/05/18 at 1552 by Adrienne Villeda RN Patient care continues from start of shift, change in assignment.
[2018-02-05 11:34] LABS: PHOSPHORUS 2.8 MG/DL (2.3-4.5)
--- NOTE | 2018-02-05 12:02 | NUR ---
TF consult: Pt admitted with COPD and intubated. On Etoh w/d protocol receiving Thiamine, Folic acid, and MVI. TF recommendations below. Will continue to follow. Recommendations: 1) Continuous TF of Vital High Protein with goal rate of 55 mL hr to provide: 1320 mL/day, 1320 kcal, 116 g protein, and 1104 water to meet 100% of patient's estimated nutrient needs 2) Hold water flushes per MD; monitor Na 3) Prealbumin q / 4) Daily wt 5) Continue Thiamine, Folic acid, and MVI given hx Etoh abuse Addendum: 02/05/18 at [address] Amended: Links added.
[2018-02-05] MEDS ORDERED: vancomycin/NS 1 GM ADD-VANTAGE 250 ML IV ONE (12:10)
[2018-02-05] MEDS: midazolam 100mg in NS 100ml 100 ML IV PRN (12:50)
[2018-02-05] MEDS: pantoprazole 40 MG vial IV SCH (12:51)
[2018-02-05] MEDS: multivitamins, therapeutics tablet PO SCH (12:51)
--- NOTE | 2018-02-05 13:02 | NUR ---
SPUTUM RESULT REPORTED TO DR. ANGELO Reported error on Laboratory's part regarding reading of patient's sputum. Informed him that the sputum showed gram positive coccix in cluster. New orders received to start [facility]. Order for Dr. Dominic reza.
--- NOTE | 2018-02-05 18:21 | NUR ---
Problems reprioritized. Patient report given, questions answered & plan of care reviewed with Yo Mascorro RN.
[2018-02-05 18:53] LABS: MAGNESIUM 2.5 MG/DL (1.5-2.4); POTASSIUM 3.8 MMOL/L (3.5-5.1)
[2018-02-05] MEDS: FENTANYL-0.9 % NACL/PF 100 ML IV PRN ×2 (19:56→21:20)
[2018-02-05] MEDS: amitryptiline 50mg tablet PO SCH (21:17)
[2018-02-05] MEDS: mineral oil/petrolatum ophthal oint EACHEYE SCH (21:30)
[2018-02-06] VITALS (24 sets, daily range): BP systolic 140–183; BP diastolic 71–101
[2018-02-06] MEDS: FENTANYL-0.9 % NACL/PF 100 ML IV PRN ×2 (00:46→03:49)
[2018-02-06 02:40] LABS: BASOPHILS % (AUTO) 0.4 % (0-1); EOSINOPHILS # (AUTO) 0.1 X10'3 (0-0.9); EOSINOPHILS % (AUTO) 1.4 % (0-6); HEMATOCRIT 28.6 % (42.0-52.0); HEMOGLOBIN 9.5 g/dl (14.0-17.9); LYMPHOCYTES # (AUTO) 0.5 X10'3 (1.1-4.8); LYMPHOCYTES % (AUTO) 5.3 % (21-51); MEAN CORPUSCULAR HEMOGLOBIN 30.5 PG (27.0-31.0); MEAN CORPUSCULAR HGB CONC 33.2 % (33.0-36.5); MEAN PLATELET VOLUME 8.5 FL (7.4-10.4); MONOCYTES # (AUTO) 0.3 X10'3 (0-0.9); MONOCYTES % (AUTO) 3.2 % (2-12); NEUTROPHILS # (AUTO) 8.6 X10'3 (1.8-7.7); NEUTROPHILS % (AUTO) 89.7 % (42-75); PLATELET COUNT 251 X10'3 (140-440); RED BLOOD COUNT 3.11 X10'6 (4.70-6.10); RED CELL DISTRIBUTION WIDTH 15.1 % (11.5-14.5); WHITE BLOOD COUNT 9.6 X10'3 (4.5-11.0)
[2018-02-06 02:56] LABS: ALBUMIN 2.1 G/DL (3.4-5.0); ANION GAP 7 (8-16); BLOOD UREA NITROGEN 24 MG/DL (7-18); BUN/CREATININE RATIO 23.8 (5.4-32.0); CALCIUM 7.8 MG/DL (8.5-10.1); CHLORIDE 103 MMOL/L (99-107); CREATININE 1.01 MG/DL (0.60-1.10); GLUCOSE 166 MG/DL (70-104); MAGNESIUM 2.2 MG/DL (1.5-2.4); PHOSPHORUS 2.4 MG/DL (2.3-4.5); SODIUM 136 MMOL/L (135-145); TOTAL CARBON DIOXIDE 25.7 MMOL/L (24-32); eGFR 75 ML/MIN
[2018-02-06 03:01] LABS: ABG BASE EXCESS 0.4 mmol/L (-2.0-3.0); ABG OXYGEN SATURATION 97.7 % (95-98); ABG PH (T) 7.413 (7.350-7.450); ABG PO2 (T) 108.7 mmHg (83-108); ALLEN'S TEST Positive; FCOHb 0.3 % (0.5-1.5); FMetHb 0.3 % (0.3-1.12); FO2Hb 97.1 % (94-100); MINUTE VOLUME 8 L/min; PATIENT TEMPERATURE 36.9; PEEP 5 cm H2O; RESPIRATORY RATE 14 b/min; RESPIRATORY RATE (OBSERVED) 14 b/min; TIDAL VOLUME 450 mL; TOTAL HEMOGLOBIN 11.1 G/dl (14.0-18.0)
[2018-02-06 03:09] LABS: PREALBUMIN 13.8 MG/DL (19-36)
[2018-02-06] MEDS: methylPREDNISolone sod succ/PF 40mg inj. IV SCH ×4 (03:47→20:48)
[2018-02-06] MEDS: mineral oil/petrolatum ophthal oint EACHEYE SCH ×2 (03:47→08:00)
[2018-02-06] MEDS: midazolam 100mg in NS 100ml 100 ML IV PRN (04:29)
[2018-02-06] MEDS: normal saline 1000ml 1,000 ML IV SCH ×2 (05:16→19:52)
--- NOTE | 2018-02-06 06:20 | NUR ---
Patient in room ICU 2045. I have received report from ERIKA Ram and had the opportunity to ask questions and assume patient care.
[2018-02-06] MEDS: K and/or MAG REPLACEMENT MC SCH (07:49)
[2018-02-06] MEDS ORDERED: vancomycin/NS 1 GM ADD-VANTAGE 250 ML IV SCH (08:00)
[2018-02-06] MEDS: potassium Cl 20 mEq SR tablet PO SCH (08:00)
[2018-02-06] MEDS: chlorthalidone 25mg tablet PO SCH (08:00)
[2018-02-06] MEDS: levoFLOXACIN-Levaquin 500mg/D5 100 ML IV SCH (08:00)
[2018-02-06] MEDS: pantoprazole 40 MG vial IV SCH (08:00)
[2018-02-06] MEDS: thiamine 100mg tablet PO SCH (08:01)
[2018-02-06] MEDS: gabapentin 300mg capsule PO SCH ×2 (08:01→20:49)
[2018-02-06] MEDS: duloxetine 30mg CAPSULE.DR PO SCH ×2 (08:01→20:49)
[2018-02-06] MEDS: multivitamins, therapeutics tablet PO SCH (08:01)
[2018-02-06] MEDS: enoxaparin 40mg/0.4ml syringe SUBCUT SCH (08:02)
[2018-02-06] MEDS: primidone 250mg tablet PO SCH (08:02)
[2018-02-06] MEDS: furosemide 40mg tablet PO SCH (08:02)
[2018-02-06] MEDS: folic acid 1mg tablet PO SCH (08:03)
[2018-02-06] MEDS: cefepime 1GM/NS ADD-VANTAGE 100 ML IV SCH ×2 (08:59→20:48)
[2018-02-06] MEDS: vancomycin inj. 750 MG in normal saline 250ml IV soln 250 ML IV SCH ×2 (10:11→22:30)
[2018-02-06] MEDS ORDERED: haloperidol lactate 5mg/ml inj IM PRN (11:20)
[2018-02-06] MEDS ORDERED: haloperidol 5mg tablet PO PRN (11:20)
[2018-02-06] MEDS ORDERED: LORazepam 2 mg/ml vial IV PRN (11:20)
--- NOTE | 2018-02-06 11:20 | NUR ---
Dr Jimenez at bs, verbal order given to stop Versed and Fentanyl gtts at this time
--- NOTE | 2018-02-06 18:16 | NUR ---
Problems reprioritized. Patient report given, questions answered & plan of care reviewed with ERIKA Ram.
[2018-02-06] MEDS: lactobacillus rhamnosus 10,000 MMU CELLS/CAPSULE PO SCH (20:49)
[2018-02-06] MEDS: amitryptiline 50mg tablet PO SCH (20:50)
[2018-02-07] VITALS (18 sets, daily range): BP systolic 134–183; BP diastolic 79–98
[2018-02-07] MEDS: labetalol 20mg/4ml (5mg/ml) syringe IV PRN (00:04)
[2018-02-07] MEDS: methylPREDNISolone sod succ/PF 40mg inj. IV SCH ×4 (02:15→19:45)
[2018-02-07 03:19] LABS: BASOPHILS % (AUTO) 0.1 % (0-1); EOSINOPHILS % (AUTO) 0.1 % (0-6); HEMATOCRIT 32.7 % (42.0-52.0); LYMPHOCYTES # (AUTO) 0.9 X10'3 (1.1-4.8); LYMPHOCYTES % (AUTO) 8.2 % (21-51); MEAN CORPUSCULAR HEMOGLOBIN 31.2 PG (27.0-31.0); MEAN CORPUSCULAR HGB CONC 33.6 % (33.0-36.5); MEAN CORPUSCULAR VOLUME 92.9 FL (78-98); MEAN PLATELET VOLUME 8.5 FL (7.4-10.4); MONOCYTES # (AUTO) 0.4 X10'3 (0-0.9); MONOCYTES % (AUTO) 3.7 % (2-12); NEUTROPHILS % (AUTO) 87.9 % (42-75); PLATELET COUNT 304 X10'3 (140-440); RED BLOOD COUNT 3.52 X10'6 (4.70-6.10); RED CELL DISTRIBUTION WIDTH 14.1 % (11.5-14.5); WHITE BLOOD COUNT 11.3 X10'3 (4.5-11.0)
[2018-02-07 03:36] LABS: INR 1.1 INR; PROTHROMBIN TIME 10.7 SECONDS (9.0-12.0)
[2018-02-07 03:37] LABS: ALANINE AMINOTRANSFERASE 45 U/L (12-78); ALBUMIN 2.5 G/DL (3.4-5.0); ALBUMIN/GLOBULIN RATIO 0.5 (1.1-1.5); ALKALINE PHOSPHATASE 96 IU/L (46-116); AMYLASE 60 U/L (25-115); ANION GAP 10 (8-16); ASPARTATE AMINO TRANSFERASE 42 U/L (10-37); BILIRUBIN,TOTAL 0.3 MG/DL (0.1-1.0); BLOOD UREA NITROGEN 20 MG/DL (7-18); BUN/CREATININE RATIO 25.3 (5.4-32.0); CALCIUM 8.6 MG/DL (8.5-10.1); CHLORIDE 94 MMOL/L (99-107); CREATININE 0.79 MG/DL (0.60-1.10); GLUCOSE 117 MG/DL (70-104); LIPASE 115 U/L (73-393); MAGNESIUM 1.6 MG/DL (1.5-2.4); PHOSPHORUS 3.4 MG/DL (2.3-4.5); SODIUM 133 MMOL/L (135-145); TOTAL CARBON DIOXIDE 29.4 MMOL/L (24-32); TOTAL PROTEIN 7.2 G/DL (6.4-8.2); eGFR > 90 ML/MIN
[2018-02-07] MEDS: hydrALAZINE 20mg/ml inj. IV PRN ×3 (03:38→23:09)
[2018-02-07 03:42] LABS: POTASSIUM 2.9 MMOL/L (3.5-5.1)
[2018-02-07] MEDS: potassium Cl 20 mEq SR tablet PO PRN ×2 (03:57→12:40)
--- NOTE | 2018-02-07 06:49 | NUR ---
Patient in room ICU 2045. I have received report from Ayad JAMES and had the opportunity to ask questions and assume patient care.
[2018-02-07] MEDS: K and/or MAG REPLACEMENT MC SCH (08:00)
[2018-02-07] MEDS ORDERED: thiamine inj. 100 MG, magnesium sulf injection 2 GM, MVI, adult No.4 with vit. K 10 ML ... IV SCH ×4 (08:00)
[2018-02-07] MEDS: levoFLOXACIN-Levaquin 500mg/D5 100 ML IV SCH (08:15)
[2018-02-07] MEDS: cefepime 1GM/NS ADD-VANTAGE 100 ML IV SCH ×2 (08:16→19:45)
[2018-02-07] MEDS: pantoprazole 40 MG vial IV SCH (08:17)
[2018-02-07] MEDS: potassium Cl 20 mEq SR tablet PO SCH (08:17)
[2018-02-07] MEDS: duloxetine 30mg CAPSULE.DR PO SCH ×2 (08:17→19:46)
[2018-02-07] MEDS: lactobacillus rhamnosus 10,000 MMU CELLS/CAPSULE PO SCH ×2 (08:17→19:46)
[2018-02-07] MEDS: furosemide 40mg tablet PO SCH (08:18)
[2018-02-07] MEDS: enoxaparin 40mg/0.4ml syringe SUBCUT SCH (08:19)
[2018-02-07] MEDS: normal saline 1000ml 1,000 ML IV SCH ×2 (08:20→19:43)
[2018-02-07] MEDS: gabapentin 300mg capsule PO SCH ×2 (08:39→19:46)
[2018-02-07] MEDS: chlorthalidone 25mg tablet PO SCH (08:40)
[2018-02-07] MEDS: vancomycin inj. 750 MG in normal saline 250ml IV soln 250 ML IV SCH ×2 (10:24→23:11)
[2018-02-07] MEDS: primidone 250mg tablet PO SCH (10:55)
[2018-02-07] MEDS: multivitamins, therapeutics tablet PO SCH (12:40)
[2018-02-07] MEDS: thiamine 100mg tablet PO SCH (12:40)
--- NOTE | 2018-02-07 13:31 | NUR ---
Consult RE: diet advancement as tolerated per MD. AME espinosa/w RN since can't order diets. RN reports pt tolerating sips w/ BSS pending but not happening until Friday. AME espinosa/w ERIKA for diet advancement per MD approval to regular as long as pt tolerates PO. Addendum: 02/07/18 at [address] Amended: Links added.
--- NOTE | 2018-02-07 17:09 | NUR ---
RECEIVED REPORT FROM ERIKA ALDANA IN ICU
--- NOTE | 2018-02-07 17:09 | NUR ---
Problems reprioritized. Patient report given, questions answered & plan of care reviewed with Noelle JAMES. Pt transferring to [facility] 3015j.
--- NOTE | 2018-02-07 17:29 | NUR ---
Pt taken to PCU rm 3014a, pt, chart, and medications handed off to Noelle JAMES. Pt in stable condition, no signs of distress, and happy with transfer to PCU.
--- NOTE | 2018-02-07 17:30 | NUR ---
PT ARRIVED TO UNIT IN STABLE CONDITION, ORIENTED TO ROOM, BED IN LOW POSITION, LOCKED. NO S/S DISTRESS, NO COMPLAINTS. PT STATES HE IS COMFORTABLE AT THIS TIME.
[2018-02-07] MEDS ORDERED: potassium Cl 20 mEq SR tablet PO PRN (17:40)
--- NOTE | 2018-02-07 18:13 | NUR ---
Patient in room PCU 3013. I have received report from ERIKA Drake and had the opportunity to ask questions and assume patient care. Patient is awake and alert finishing dinner at time of report. In no distress at this time.
--- NOTE | 2018-02-07 18:14 | NUR ---
Problems reprioritized. Patient report given, questions answered & plan of care reviewed with DAISY, RN BEDSIDE AND SBAR.
[2018-02-07] MEDS: amitryptiline 50mg tablet PO SCH (20:45)
[2018-02-07 21:19] LABS: POTASSIUM 4.3 MMOL/L (3.5-5.1); VANCOMYCIN,TROUGH 13.6 UG/ML (6.0-14.0)
[2018-02-07] MEDS ORDERED: VANCOMYCIN LEVEL IV ONE (21:30)
[2018-02-07] MEDS: HYDROcodone/acetaminophen 10/325mg tab PO PRN (23:09)
[2018-02-08] MEDS: methylPREDNISolone sod succ/PF 40mg inj. IV SCH ×4 (02:37→20:07)
[2018-02-08 03:00] VITALS: BP 157/87
[2018-02-08 05:18] LABS: BASOPHILS % (AUTO) 0.1 % (0-1); EOSINOPHILS % (AUTO) 0 % (0-6); HEMATOCRIT 34.7 % (42.0-52.0); HEMOGLOBIN 11.7 g/dl (14.0-17.9); LYMPHOCYTES % (AUTO) 11.8 % (21-51); MEAN CORPUSCULAR HEMOGLOBIN 31.1 PG (27.0-31.0); MEAN CORPUSCULAR HGB CONC 33.7 % (33.0-36.5); MEAN CORPUSCULAR VOLUME 92.2 FL (78-98); MEAN PLATELET VOLUME 8.1 FL (7.4-10.4); MONOCYTES # (AUTO) 0.3 X10'3 (0-0.9); MONOCYTES % (AUTO) 4.3 % (2-12); NEUTROPHILS # (AUTO) 6.8 X10'3 (1.8-7.7); NEUTROPHILS % (AUTO) 83.8 % (42-75); PLATELET COUNT 293 X10'3 (140-440); RED BLOOD COUNT 3.76 X10'6 (4.70-6.10); RED CELL DISTRIBUTION WIDTH 14.3 % (11.5-14.5); WHITE BLOOD COUNT 8.1 X10'3 (4.5-11.0)
[2018-02-08 05:46] LABS: ALANINE AMINOTRANSFERASE 62 U/L (12-78); ALBUMIN 2.5 G/DL (3.4-5.0); ALBUMIN/GLOBULIN RATIO 0.6 (1.1-1.5); ALKALINE PHOSPHATASE 95 IU/L (46-116); AMYLASE 109 U/L (25-115); ANION GAP 9 (8-16); ASPARTATE AMINO TRANSFERASE 42 U/L (10-37); BILIRUBIN,TOTAL 0.3 MG/DL (0.1-1.0); BLOOD UREA NITROGEN 23 MG/DL (7-18); BUN/CREATININE RATIO 31.1 (5.4-32.0); CALCIUM 8.4 MG/DL (8.5-10.1); CHLORIDE 94 MMOL/L (99-107); CREATININE 0.74 MG/DL (0.60-1.10); GLUCOSE 121 MG/DL (70-104); LIPASE 251 U/L (73-393); MAGNESIUM 1.4 MG/DL (1.5-2.4); PHOSPHORUS 2.6 MG/DL (2.3-4.5); POTASSIUM 3.6 MMOL/L (3.5-5.1); SODIUM 129 MMOL/L (135-145); TOTAL CARBON DIOXIDE 25.9 MMOL/L (24-32); TOTAL PROTEIN 6.9 G/DL (6.4-8.2); eGFR > 90 ML/MIN
[2018-02-08 05:53] LABS: INR 1.1 INR; PROTHROMBIN TIME 11.5 SECONDS (9.0-12.0)
[2018-02-08 06:00] VITALS: BP 171/100
--- NOTE | 2018-02-08 06:40 | NUR ---
Patient in room PCU 3013. I have received report from ERIKA Briceño and had the opportunity to ask questions and assume patient care.
--- NOTE | 2018-02-08 06:40 | NUR ---
Problems reprioritized. Patient report given, questions answered & plan of care reviewed with ERIKA Rees. Patient sleeping at time of report, in no distress at this time.
[2018-02-08] MEDS: pantoprazole 40mg Tablet.DR PO SCH (07:59)
[2018-02-08] MEDS: lactobacillus rhamnosus 10,000 MMU CELLS/CAPSULE PO SCH ×2 (07:59→20:04)
[2018-02-08] MEDS: chlorthalidone 25mg tablet PO SCH (07:59)
[2018-02-08] MEDS: thiamine 100mg tablet PO SCH (07:59)
[2018-02-08] MEDS: potassium Cl 20 mEq SR tablet PO SCH (07:59)
[2018-02-08] MEDS: duloxetine 30mg CAPSULE.DR PO SCH ×2 (07:59→20:04)
[2018-02-08] MEDS: multivitamins, therapeutics tablet PO SCH (07:59)
[2018-02-08] MEDS: gabapentin 300mg capsule PO SCH ×2 (07:59→20:04)
[2018-02-08] MEDS: primidone 250mg tablet PO SCH (07:59)
[2018-02-08] MEDS: enoxaparin 40mg/0.4ml syringe SUBCUT SCH (08:00)
[2018-02-08] MEDS: furosemide 40mg tablet PO SCH (08:00)
[2018-02-08] MEDS: K and/or MAG REPLACEMENT MC SCH (08:15)
[2018-02-08] MEDS: cefepime 1GM/NS ADD-VANTAGE 100 ML IV SCH ×2 (08:18→20:02)
[2018-02-08] MEDS: normal saline 1000ml 1,000 ML IV SCH ×2 (10:36→14:47)
[2018-02-08 11:00] VITALS: BP 166/101
[2018-02-08] MEDS: vancomycin inj. 750 MG in normal saline 250ml IV soln 250 ML IV SCH (11:01)
[2018-02-08] MEDS: levoFLOXACIN 500mg tablet PO SCH (11:06)
[2018-02-08] MEDS: HYDROcodone/acetaminophen 10/325mg tab PO PRN (11:29)
[2018-02-08] MEDS: hydrALAZINE 20mg/ml inj. IV PRN (11:29)
[2018-02-08] MEDS ORDERED: magnesium 4gm in 100ml NS 100 ML IV PRN (12:20)
[2018-02-08] MEDS: magnesium Cl slow-release 64mg tablet PO PRN ×2 (12:36→20:04)
--- NOTE | 2018-02-08 12:55 | NUR ---
reassessment: Pt advanced to heart healthy diet w/ PO 50-75% meals good given wt. on PO thiamin/MVI for etoh hx. LBM 02/07. Receiving electrolyte replacement per protocol. Will continue to monitor. Recommendations: 1) Continue heart healthy diet 2) monitor for ONS needs 3) wt per rx 4) Continue Thiamine, Folic acid, and MVI given hx Etoh abuse Addendum: 02/08/18 at [address] Amended: Links added.
[2018-02-08 15:00] VITALS: BP 133/83
[2018-02-08] MEDS ORDERED: losartan 50mg tablet PO ONE (15:17)
[2018-02-08 18:00] VITALS: BP 150/87
--- NOTE | 2018-02-08 18:04 | NUR ---
Problems reprioritized. Patient report given, questions answered & plan of care reviewed with ERIKA Rodriguez.
[2018-02-08 19:42] LABS: CLARITY,URINE CLEAR (Clear); COLOR,URINE YELLOW (Yellow); GLUCOSE, URINE NEGATIVE (Neg); KETONES,URINE NEGATIVE (Neg); LEUKOCYTE ESTERASE ,URINE NEGATIVE (Neg); NITRITES, URINE NEGATIVE (Neg); OCCULT BLOOD,URINE LARGE (Neg); PROTEIN,URINE NEGATIVE (Neg); UA COLLECTION TYPE FOLEY CATH; UROBILINOGEN,URINE 0.2 E.U/dL (0.2-1.0)
[2018-02-08 19:43] LABS: BACTERIA,URINE NONE SEEN /HPF (Neg); SQUAMOUS EPITHELIAL CELL,UR FEW /LPF (FEW); WBC,URINE NONE SEEN /HPF (0-4)
[2018-02-08] MEDS: carVEDilol 12.5mg tablet PO SCH (20:04)
[2018-02-08] MEDS: amitryptiline 50mg tablet PO SCH (21:04)
[2018-02-08 22:00] VITALS: BP 140/79
[2018-02-08] MEDS: vancomycin/NS 1 GM ADD-VANTAGE 250 ML IV SCH (22:36)
[2018-02-09 02:00] VITALS: BP 179/90
[2018-02-09] MEDS: labetalol 20mg/4ml (5mg/ml) syringe IV PRN (03:49)
[2018-02-09 05:29] LABS: BASOPHILS # (AUTO) 0.1 X10'3 (0-0.2); BASOPHILS % (AUTO) 0.9 % (0-1); EOSINOPHILS % (AUTO) 0.1 % (0-6); HEMATOCRIT 33.7 % (42.0-52.0); HEMOGLOBIN 11.6 g/dl (14.0-17.9); LYMPHOCYTES # (AUTO) 1.5 X10'3 (1.1-4.8); MEAN CORPUSCULAR HEMOGLOBIN 31.9 PG (27.0-31.0); MEAN CORPUSCULAR HGB CONC 34.5 % (33.0-36.5); MEAN CORPUSCULAR VOLUME 92.5 FL (78-98); MEAN PLATELET VOLUME 8.7 FL (7.4-10.4); MONOCYTES # (AUTO) 0.4 X10'3 (0-0.9); MONOCYTES % (AUTO) 4.8 % (2-12); NEUTROPHILS # (AUTO) 6.6 X10'3 (1.8-7.7); NEUTROPHILS % (AUTO) 77.2 % (42-75); PLATELET COUNT 290 X10'3 (140-440); RED BLOOD COUNT 3.65 X10'6 (4.70-6.10); WHITE BLOOD COUNT 8.6 X10'3 (4.5-11.0)
[2018-02-09 05:48] LABS: ALANINE AMINOTRANSFERASE 74 U/L (12-78); ALBUMIN 2.4 G/DL (3.4-5.0); ALBUMIN/GLOBULIN RATIO 0.6 (1.1-1.5); ALKALINE PHOSPHATASE 97 IU/L (46-116); AMYLASE 103 U/L (25-115); ANION GAP 9 (8-16); ASPARTATE AMINO TRANSFERASE 53 U/L (10-37); BILIRUBIN,TOTAL 0.2 MG/DL (0.1-1.0); BLOOD UREA NITROGEN 22 MG/DL (7-18); BUN/CREATININE RATIO 25.6 (5.4-32.0); CALCIUM 8.5 MG/DL (8.5-10.1); CHLORIDE 94 MMOL/L (99-107); CREATININE 0.86 MG/DL (0.60-1.10); GLUCOSE 134 MG/DL (70-104); LIPASE 327 U/L (73-393); MAGNESIUM 1.4 MG/DL (1.5-2.4); PHOSPHORUS 2.9 MG/DL (2.3-4.5); POTASSIUM 3.3 MMOL/L (3.5-5.1); SODIUM 129 MMOL/L (135-145); TOTAL CARBON DIOXIDE 26.4 MMOL/L (24-32); TOTAL PROTEIN 6.5 G/DL (6.4-8.2); eGFR 90 ML/MIN
[2018-02-09 06:00] VITALS: BP 150/100
[2018-02-09] MEDS: HYDROcodone/acetaminophen 10/325mg tab PO PRN (06:00)
[2018-02-09 06:10] LABS: INR 1.2 INR
--- NOTE | 2018-02-09 06:49 | NUR ---
Problems reprioritized. Patient report given, questions answered & plan of care reviewed with Durga RN.
--- NOTE | 2018-02-09 07:07 | NUR ---
Patient in room PCU 3013. I have received report from ERIKA DELAROSA and had the opportunity to ask questions and assume patient care.
[2018-02-09] MEDS: pantoprazole 40mg Tablet.DR PO SCH (07:55)
[2018-02-09] MEDS: methylPREDNISolone sod succ/PF 40mg inj. IV SCH (07:56)
[2018-02-09] MEDS: cefepime 1GM/NS ADD-VANTAGE 100 ML IV SCH (07:56)
[2018-02-09] MEDS: chlorthalidone 25mg tablet PO SCH (07:58)
[2018-02-09] MEDS: carVEDilol 12.5mg tablet PO SCH (07:58)
[2018-02-09] MEDS: lactobacillus rhamnosus 10,000 MMU CELLS/CAPSULE PO SCH (07:59)
[2018-02-09] MEDS: duloxetine 30mg CAPSULE.DR PO SCH (07:59)
[2018-02-09] MEDS: potassium Cl 20 mEq SR tablet PO SCH (08:00)
[2018-02-09] MEDS: furosemide 40mg tablet PO SCH (08:00)
[2018-02-09] MEDS ORDERED: losartan 50mg tablet PO SCH (08:00)
[2018-02-09] MEDS: primidone 250mg tablet PO SCH (08:01)
[2018-02-09] MEDS: multivitamins, therapeutics tablet PO SCH (08:01)
[2018-02-09] MEDS: gabapentin 300mg capsule PO SCH (08:01)
[2018-02-09] MEDS: enoxaparin 40mg/0.4ml syringe SUBCUT SCH (08:02)
[2018-02-09] MEDS: thiamine 100mg tablet PO SCH (08:02)
[2018-02-09] MEDS: potassium Cl 20 mEq SR tablet PO PRN ×2 (08:03→12:32)
[2018-02-09] MEDS: magnesium Cl slow-release 64mg tablet PO PRN (08:03)
[2018-02-09] MEDS: K and/or MAG REPLACEMENT MC SCH (08:12)
[2018-02-09 11:00] VITALS: BP 142/87
[2018-02-09] MEDS: vancomycin/NS 1 GM ADD-VANTAGE 250 ML IV SCH (11:00)
[2018-02-09] MEDS: levoFLOXACIN 500mg tablet PO SCH (11:00)
[2018-02-09] MEDS ORDERED: linezolid 600mg tablet PO SCH (12:00)
[2018-02-09] MEDS ORDERED: LINE600T32 PO (12:01)
--- NOTE | 2018-02-09 15:00 | NUR ---
REFUSED TO HAVE WOUND PICTURES TAKEN BEFORE DISCHARGE.
[2018-02-10] MEDS ORDERED: VANCOMYCIN LEVEL IV ONE (10:30)
== END 2018-02-09 15:20 | disposition home or self-care (01) | DRG 208 ==
LOC: ER 13:41 → ED HOLD 15:27 → PCU 3S 19:00 → ICU 2S 19:54 → PCU 3S 02-07 17:40
PROVIDERS: ADMIT Hospitalist; ATTEND Internal Medicine Critical Care Medicine
PROC: 5A1945Z Respiratory Ventilation, 24-96 Consecutive Hours (ICD-10-PCS; principal; 2018-02-04)
PROC: 0BH17EZ Insertion of Endotracheal Airway into Trachea, Via Natural or Artificial Opening (ICD-10-PCS; 2018-02-04)
PROC: 5A09357 Assistance with Respiratory Ventilation, Less than 24 Consecutive Hours, Continuous Positive Airway Pressure (ICD-10-PCS; 2018-02-04)
PROC: 02HV33Z Insertion of Infusion Device into Superior Vena Cava, Percutaneous Approach (ICD-10-PCS; 2018-02-05)
DX: J18.1 Lobar pneumonia, unspecified organism (principal); J96.01 Acute respiratory failure with hypoxia; J44.1 Chronic obstructive pulmonary disease with (acute) exacerbation; J44.0 Chronic obstructive pulmonary disease with (acute) lower respiratory infection; K92.2 Gastrointestinal hemorrhage, unspecified; I50.9 Heart failure, unspecified; I11.0 Hypertensive heart disease with heart failure; E10.9 Type 1 diabetes mellitus without complications; F10.10 Alcohol abuse, uncomplicated; Z59.0 Homelessness; G89.29 Other chronic pain; M54.9 Dorsalgia, unspecified; D72.825 Bandemia; Y95 Nosocomial condition; Z79.4 Long term (current) use of insulin; Z79.82 Long term (current) use of aspirin; Z79.899 Other long term (current) drug therapy; Z82.5 Family history of asthma and other chronic lower respiratory diseases; Z83.3 Family history of diabetes mellitus
CPT/HCPCS: 36415; 36600; 70490; 71045; 80048; 80053; 80202; 81001; 82140; 82150; 82803; 82948; 83605; 83690; 83735; 83880; 84100; 84132; 84134; 84145; 84484; 85018; 85025; 85610; 85730; 87040; 87070; 87077; 87186; 92616; 93005; 94002; 94003; 94640; 94760; 97110; 97116; 97162; 97530; 99291; C9113; G0378; J0360; J0692; J1650; J1940; J1956; J2060; J2250; J2704; J2920; J2930; J3370; J3411; J3475; J3480; J3490; J7030; J7060